=== PATIENT | female | born 1980 | race Caucasian/White ===

== ENCOUNTER 2017-02-01 10:15 | Observation (INO) | payer OTHER ==
[2017-02-01] MEDS ORDERED: PENICILLIN G BENZATHINE LA 2,400,000 UNIT/4 ML DISP.SYRIN. IM ONE (11:30)
[2017-02-01] MEDS ORDERED: AZITHROMYCIN 250 MG TABLET. PO ONE (11:30)
[2017-02-01 11:36] LABS: BASO % 1 % (0-3); EOS % 2 % (0-3); HEMATOCRIT 32.1 % (36.0-47.0); HEMOGLOBIN 10.9 g/dL (12.0-15.5); LYMPH # 1.4 x10^3/uL (1.0-4.8); LYMPH % 21 % (24-48); MEAN CORPUSCULAR HEMOGLOBIN 30 pg (25-35); MEAN CORPUSCULAR HGB CONC 34 g/dL (31-37); MEAN CORPUSCULAR VOLUME 89 fL (79-100); MONO % 7 % (0-9); NEUT % 71 % (31-73); PLATELET COUNT 224 x10^3/uL (140-400); RED CELL DISTRIBUTION WIDTH 14.7 % (11.5-14.5); WHITE BLOOD COUNT 6.8 x10^3/uL (4.0-11.0)
[2017-02-01] MEDS ORDERED: IV RINGERS,LACTATED 500ML 500 ML IV ONE (12:45)
--- NOTE | 2017-02-01 15:58 | PDOC1 ---
OB - History Hx of Present Care: Limited Care Ultrasounds: Normal mid trimester US Obstetrical Complications: None Medical Complications: Other (syphilis and chlamydia) Past Family/Social History * Past Medical, Surgical, Family and Obstetric Histories reviewed from chart. Rubella: Immune RPR/VDRL: Negative GBS Status: Unknown HBsAG: Negative OB - Chief Complaint & HPI Date of Admission: Date of Admission: Feb 01, 2017 at 10:15 Chief Complaint/History : 6 Para: 5 EGA: 25 Reason for admission: other (treatment syphilis and chlamydia) Admission Nurse Assessment Rev: Yes Problems: OB - Admission Exam Physical Exam HEENT: Normal Heart: Regular Rate Lungs: Clear Abdomen: Gravid, Non tender, Soft Extremities: Edema Reflexes: Normal Cervical Dilatation: None Effacement: 0% Station: Ballotable Membranes: Intact Heart Rate: Normal Accelerations: Accelerations Present Decelerations: No decelerations Contractions on Admission: None Text A: 1. 25 wks IUP 2. Previous c/s 3. Syphilis: unknown stage 4. Chlamydia P: Benzathine Pen G 2.4 Million Units IM weekly x 3 wks. Rx Zithromycin 1000 mg single dose. Rx written for significant other to be treated as well. Monitor NST up to 4 hours after each injection. DAXA VELEZ Jr, MD Feb 01, 2017 15:58
[2017-02-02 06:19] LABS: RPR REFLEX Non Reactive (Non Reactive)
== END 2017-02-01 19:50 | disposition home or self-care (01) ==
LOC: 3 SO LND 10:15
PROVIDERS: ADMIT Obstetrics & Gynecology; ATTEND Obstetrics & Gynecology
DX: O98.112 Syphilis complicating pregnancy, second trimester (principal); O98.312 Other infections with a predominantly sexual mode of transmission complicating pregnancy, second trimester; A56.8 Sexually transmitted chlamydial infection of other sites; Z3A.26 26 weeks gestation of pregnancy
CPT/HCPCS: 36415; 85027; 86593; 86850; 86900; 86901; 96360; G0378; G0379; J7120; Q0144

== ENCOUNTER 2017-02-08 08:36 | Observation (INO) | payer OTHER ==
[~2017-02-08] VITALS: Ht 160 cm; Wt 106.1 kg
[2017-02-08] MEDS ORDERED: IV RINGERS,LACTATED 1000ML 1,000 ML IV PRN (09:00)
[2017-02-08 09:30] LABS: NEG OBC AMNIO NEG; POS OBC AMNIO POS
[2017-02-08 10:41] LABS: BASO % 0 % (0-3); EOS % 2 % (0-3); HEMATOCRIT 33.7 % (36.0-47.0); HEMOGLOBIN 11.5 g/dL (12.0-15.5); LYMPH # 1.6 x10^3/uL (1.0-4.8); LYMPH % 16 % (24-48); MEAN CORPUSCULAR HEMOGLOBIN 31 pg (25-35); MEAN CORPUSCULAR HGB CONC 34 g/dL (31-37); MEAN CORPUSCULAR VOLUME 90 fL (79-100); MONO % 7 % (0-9); NEUT % 75 % (31-73); PLATELET COUNT 217 x10^3/uL (140-400); RED BLOOD COUNT 3.76 x10^6/uL (3.50-5.40); RED CELL DISTRIBUTION WIDTH 14.7 % (11.5-14.5); WHITE BLOOD COUNT 9.7 x10^3/uL (4.0-11.0)
[2017-02-08 10:42] LABS: CALCIUM 8.1 mg/dL (8.5-10.1); CREATININE 0.6 mg/dL (0.6-1.0); GFR 113.8; POTASSIUM 3.9 mmol/L (3.5-5.1)
[2017-02-08 10:48] LABS: ALBUMIN 2.1 g/dL (3.4-5.0); ALBUMIN/GLOBULIN RATIO 0.5 (1.0-1.7); TOTAL BILIRUBIN 0.1 mg/dL (0.2-1.0); TOTAL PROTEIN 6.1 g/dL (6.4-8.2)
[2017-02-08 12:49] VITALS: BP 120/73
== END 2017-02-08 11:33 | disposition home or self-care (01) ==
LOC: 3 SO LND 08:36
PROVIDERS: ADMIT Specialist; ATTEND Specialist
DX: O42.912 Preterm premature rupture of membranes, unspecified as to length of time between rupture and onset of labor, second trimester (principal); O26.892 Other specified pregnancy related conditions, second trimester; R10.10 Upper abdominal pain, unspecified; Z3A.27 27 weeks gestation of pregnancy
CPT/HCPCS: 36415; 80053; 82150; 83690; 84112; 85025; G0378; G0379

== ENCOUNTER 2017-04-01 20:38 | Observation (INO) | payer OTHER ==
[2017-04-01] MEDS ORDERED: IV RINGERS,LACTATED 1000ML 1,000 ML IV SCH (20:44)
[2017-04-01 20:54] LABS: BILIRUBIN,URINE NEGATIVE (NEG); GLUCOSE,URINE NEGATIVE (NEG); NITRITE,URINE NEGATIVE (NEG); PH,URINE 6.5; PROTEIN,URINE NEGATIVE (NEG-TRACE); UROBILINOGEN,URINE 0.2 mg/dL (0.2 mg/dL)
[2017-04-01 21:01] LABS: BARBITURATES NEG (NEG); BENZODIAZEPINES NEG (NEG); CANNABINOIDS NEG (NEG); COCAINE NEG (NEG); METHADONE NEG (NEG); OPIATES NEG (NEG); PHENCYCLIDINE NEG (NEG)
[2017-04-01 21:06] LABS: BACTERIA,URINE MODERATE /HPF (0-FEW); RBC,URINE 0 /HPF (0-2); SQUAMOUS EPITHELIAL CELL,UR MOD /LPF
== END 2017-04-01 22:00 | disposition home or self-care (01) ==
LOC: 3 SO LND 20:38
PROVIDERS: ADMIT Specialist; ATTEND Specialist
DX: O36.8130 Decreased fetal movements, third trimester, not applicable or unspecified (principal); Z3A.34 34 weeks gestation of pregnancy
CPT/HCPCS: 80307; 81001; 87086; G0379; G0479

== ENCOUNTER 2017-04-18 20:40 | Observation (INO) | payer OTHER | END 2017-04-18 22:38 | disposition home or self-care (01) | LOC: 3 SO LND 20:40 | PROVIDERS: ADMIT Specialist; ATTEND Specialist | DX: Z34.93 Encounter for supervision of normal pregnancy, unspecified, third trimester (principal); Z3A.37 37 weeks gestation of pregnancy | CPT/HCPCS: G0378; G0379; 59025 ==

== ENCOUNTER 2018-10-08 05:17 | Inpatient (IN) | payer OTHER ==
[2018-10-08] VITALS (7 sets, daily range): BP systolic 112–133; BP diastolic 61–75
[~2018-10-08] VITALS: Ht 167.6 cm; Wt 140.6 kg
[~2018-10-08 05:17] MED LIST: DOCU-109 PO; NAPR-514 PO; OXYC1TAB15 PO
[2018-10-08] MEDS ORDERED: CITRIC ACID/SODIUM CITRATE 30 ML SOLUTION. PO ONE (06:00)
[2018-10-08] MEDS ORDERED: IV RINGERS,LACTATED 1000ML 1,000 ML IV SCH (06:00)
[2018-10-08 06:28] LABS: HEMATOCRIT 28.4 % (36.0-47.0); HEMOGLOBIN 9.3 g/dL (12.0-15.5); RED BLOOD COUNT 3.34 x10^6/uL (3.50-5.40); RED CELL DISTRIBUTION WIDTH 17.5 % (11.5-14.5); WHITE BLOOD COUNT 6.6 x10^3/uL (4.0-11.0)
[2018-10-08 06:35] LABS: BILIRUBIN,URINE NEGATIVE (NEG); CLARITY,URINE CLEAR; COLOR,URINE YELLOW; NITRITE,URINE NEGATIVE (NEG); PH,URINE 6.5; PROTEIN,URINE NEGATIVE (NEG-TRACE)
[2018-10-08 06:40] LABS: BACTERIA,URINE FEW /HPF (0-FEW); SQUAMOUS EPITHELIAL CELL,UR OCC /LPF; WBC,URINE OCC /HPF (0-4)
[2018-10-08 06:41] LABS: RBC,URINE 0 /HPF (0-2)
[2018-10-08 06:47] LABS: BARBITURATES NEG (NEG); BENZODIAZEPINES NEG (NEG); CANNABINOIDS NEG (NEG); COCAINE NEG (NEG); METHADONE NEG (NEG); OPIATES NEG (NEG); PHENCYCLIDINE NEG (NEG)
[2018-10-08 06:51] LABS: AMPHETAMINE/METHAMPHETAMINE NEG (NEG)
[2018-10-08] MEDS ORDERED: fentaNYL PF VIAL 100 MCG/2 ML VIAL ONE (07:15)
[2018-10-08] MEDS ORDERED: MORPHINE PF 5 MG/10 ML VIAL. ONE (07:15)
[2018-10-08] MEDS ORDERED: ePHEDrine PF IN SALINE 50 MG/10 ML SYRINGE. IV ONE (07:16)
[2018-10-08] MEDS ORDERED: FAMOTIDINE 20 MG/2 ML VIAL ONE (08:29)
[2018-10-08] MEDS ORDERED: ONDANSETRON PF 4 MG/2 ML VIAL. ONE (08:29)
[2018-10-08] MEDS ORDERED: OXYTOCIN 10 UNIT/ML VIAL. ONE (09:02)
[2018-10-08] MEDS ORDERED: PHENYLEPHRINE in 0.9% NACL PF 1 MG/10 ML SYRINGE. IV ONE (09:02)
[2018-10-08] MEDS ORDERED: MAGNESIUM HYDROXIDE 2,400 MG/30 ML ORAL.SUSP. PO PRN (09:15)
[2018-10-08] MEDS ORDERED: MAG HYDROX/ALUMINUM HYD/SIMETH 30 ML ORAL.SUSP PO PRN (09:15)
[2018-10-08] MEDS ORDERED: OXYTOCIN 30 UNIT/500 ML PREMIX 500 ML IV PRN (09:15)
[2018-10-08] MEDS ORDERED: ONDANSETRON PF 4 MG/2 ML VIAL. IV PRN (09:15)
[2018-10-08] MEDS ORDERED: MMR per PROTOCOL. MC PRN (09:15)
[2018-10-08] MEDS ORDERED: ZOLPIDEM 5 MG TABLET. PO PRN (09:15)
[2018-10-08] MEDS ORDERED: diphenhydrAMINE ORAL ELIXIR 12.5 MG/5 ML ML PO PRN (09:15)
[2018-10-08] MEDS ORDERED: 0.9 % SODIUM CHLORIDE 10 ML DISP.SYRIN. IV PRN (09:15)
--- NOTE | 2018-10-08 09:18 | PDOC ---
BRIEF OPERATIVE NOTE Pre-Op Diagnosis TIUP Previous term IUFD RLTC/S Post-Op Diagnosis same Procedure Performed section repeat Surgeon Nandini Blood Loss 500cc Findings male 12/31 Complications None CASIMIRO MOSS MD Oct 08, 2018 09:18
[2018-10-08] MEDS: KETOROLAC 30 MG/ML VIAL. IV PRN ×2 (11:16→18:50)
--- NOTE | 2018-10-08 13:00 | NUR ---
Pt. to room 339 via w/c from special care nursery. Pt. transferred well from chair to bed, but pt. is vomiting/retching frequently. Instructed to splint incision with pillow to help decrease pain. Oriented to room and POC, FOB and other children at bedside.
[2018-10-08] MEDS: IBUPROFEN 400 MG TABLET. PO SCH ×2 (14:00→22:00)
[2018-10-08] MEDS ORDERED: PROMETHAZINE 12.5 MG TABLET. PO PRN (14:15)
[2018-10-08] MEDS ORDERED: EPHE1TAB PO (14:16)
[2018-10-08] MEDS ORDERED: PREN1TAB9 PO (14:16)
[2018-10-08] MEDS: ceFAZolin SODIUM 1 GM in IV DEXTROSE 5% 50 ML IV SCH ×2 (14:50→22:35)
--- NOTE | 2018-10-08 14:50 | NUR ---
Pt. continues to vomit and retch frequently especially with movement.. notified and additional orders for antiemetic given. Pt. requesting to go back down to nursery, but RN explained was not best for her while still having frequent vomiting. Reinforced need to try and rest after major surgery.
[2018-10-08] MEDS: IV RINGERS,LACTATED 1000ML 1,000 ML IV SCH ×2 (15:00→16:38)
--- NOTE | 2018-10-08 16:45 | NUR ---
Pt. requesting again to go down to nursery to visit baby. RN reinforced again that was not a good idea while continuing to vomit and retch. RN informed of risk for dehiscence with overexertion and that increased movement was increasing her n/v. Pt. stating RN is keeping her from her baby and regardless of risks would like to go visit her baby. Pt. to nursery via w/c accompanied by RN. Pt. transferred well.
[2018-10-08] MEDS: FERROUS SULFATE 325 MG TABLET. PO SCH (17:00)
--- NOTE | 2018-10-08 17:45 | NUR ---
Pt. returned to room and transferred back to bed per self, tolerated well. Pt. tolerated visit to nursery without n/v. Pt. with increased bleeding (moderate rubra with small clots) when placed back in bed; fundus firm, but deviated to right slightly. Barnes catheter draining well. Will continue to monitor closely.
[2018-10-09] MEDS: IV RINGERS,LACTATED 1000ML 1,000 ML IV SCH ×3 (01:35→15:00)
[2018-10-09 04:30] VITALS: BP 110/68
[2018-10-09 04:45] LABS: BASO # 0.1 x10^3/uL (0.0-0.2); BASO % 1 % (0-3); EOS # 0.1 x10^3/uL (0.0-0.7); EOS % 2 % (0-3); HEMOGLOBIN 8.9 g/dL (12.0-15.5); LYMPH # 1.2 x10^3/uL (1.0-4.8); LYMPH % 18 % (24-48); MEAN CORPUSCULAR HEMOGLOBIN 28 pg (25-35); MEAN CORPUSCULAR HGB CONC 33 g/dL (31-37); MEAN CORPUSCULAR VOLUME 85 fL (79-100); MONO # 0.5 x10^3/uL (0.0-1.1); MONO % 8 % (0-9); NEUT # 4.6 x10^3uL (1.8-7.7); NEUT % 71 % (31-73); PLATELET COUNT 260 x10^3/uL (140-400); RED BLOOD COUNT 3.17 x10^6/uL (3.50-5.40); RED CELL DISTRIBUTION WIDTH 17.3 % (11.5-14.5); WHITE BLOOD COUNT 6.5 x10^3/uL (4.0-11.0)
[2018-10-09] MEDS: IBUPROFEN 400 MG TABLET. PO SCH ×3 (04:53→19:11)
[2018-10-09] MEDS: ceFAZolin SODIUM 1 GM in IV DEXTROSE 5% 50 ML IV SCH (06:00)
--- NOTE | 2018-10-09 07:25 | NUR ---
Pt. fundus firm, scant amount of rubra vaginal flow, up to BR, perineal care given. Verbalized understanding of self care. Pt. ambulates to special care nursery to visit NB.
[2018-10-09] MEDS: oxyCODONE/APAP 5/325 1 TAB TABLET PO PRN ×5 (08:19→21:33)
[2018-10-09] MEDS: FERROUS SULFATE 325 MG TABLET. PO SCH ×2 (08:57→17:21)
[2018-10-09 08:58] VITALS: BP 113/58
--- NOTE | 2018-10-09 13:54 | PDOC ---
OB Progress Note Date of Service 10/09/18 Time of Evaluation 1350 Notes Pt. feeling well. No complaints. Lab Laboratory Tests Test 10/08/18 05:27 10/08/18 05:50 10/08/18 06:15 10/09/18 04:35 Treponema pallidum Antibody Reactive (Nonreactive) White Blood Count 6.6 x10^3/uL (4.0-11.0) 6.5 x10^3/uL (4.0-11.0) Red Blood Count 3.34 x10^6/uL (3.50-5.40) 3.17 x10^6/uL (3.50-5.40) Hemoglobin 9.3 g/dL (12.0-15.5) 8.9 g/dL (12.0-15.5) Hematocrit 28.4 % (36.0-47.0) 27.0 % (36.0-47.0) Mean Corpuscular Volume 85 fL (79-100) 85 fL (79-100) Mean Corpuscular Hemoglobin 28 pg (25-35) 28 pg (25-35) Mean Corpuscular Hemoglobin Concent 33 g/dL (31-37) 33 g/dL (31-37) Red Cell Distribution Width 17.5 % (11.5-14.5) 17.3 % (11.5-14.5) Platelet Count 317 x10^3/uL (140-400) 260 x10^3/uL (140-400) Urine Collection Type Void Urine Color Yellow Urine Clarity Clear Urine pH 6.5 Urine Specific [place] >=1.030 Urine Protein Negative mg/dL (NEG-TRACE) Urine Glucose (UA) Negative mg/dL (NEG) Urine Ketones (Stick) Trace mg/dL (NEG) Urine Blood Negative (NEG) Urine Nitrite Negative (NEG) Urine Bilirubin Negative (NEG) Urine Urobilinogen Dipstick 1.0 mg/dL (0.2 mg/dL) Urine Leukocyte Esterase Negative (NEG) Urine RBC 0 /HPF (0-2) Urine WBC Occ /HPF (0-4) Urine Squamous Epithelial Cells Occ /LPF Urine Bacteria Few /HPF (0-FEW) Urine Mucus Marked /LPF Urine Opiates Screen Neg (NEG) Urine Methadone Screen Neg (NEG) Urine Barbiturates Neg (NEG) Urine Phencyclidine Screen Neg (NEG) Urine Amphetamine/Methamphetamine Neg (NEG) Urine Benzodiazepines Screen Neg (NEG) Urine Cocaine Screen Neg (NEG) Urine Cannabinoids Screen Neg (NEG) Urine Ethyl Alcohol Neg (NEG) Neutrophils (%) (Auto) 71 % (31-73) Lymphocytes (%) (Auto) 18 % (24-48) Monocytes (%) (Auto) 8 % (0-9) Eosinophils (%) (Auto) 2 % (0-3) Basophils (%) (Auto) 1 % (0-3) Neutrophils # (Auto) 4.6 x10^3uL (1.8-7.7) Lymphocytes # (Auto) 1.2 x10^3/uL (1.0-4.8) Monocytes # (Auto) 0.5 x10^3/uL (0.0-1.1) Eosinophils # (Auto) 0.1 x10^3/uL (0.0-0.7) Basophils # (Auto) 0.1 x10^3/uL (0.0-0.2) Laboratory Tests Test 10/09/18 04:35 White Blood Count 6.5 x10^3/uL (4.0-11.0) Red Blood Count 3.17 x10^6/uL (3.50-5.40) Hemoglobin 8.9 g/dL (12.0-15.5) Hematocrit 27.0 % (36.0-47.0) Mean Corpuscular Volume 85 fL (79-100) Mean Corpuscular Hemoglobin 28 pg (25-35) Mean Corpuscular Hemoglobin Concent 33 g/dL (31-37) Red Cell Distribution Width 17.3 % (11.5-14.5) Platelet Count 260 x10^3/uL (140-400) Neutrophils (%) (Auto) 71 % (31-73) Lymphocytes (%) (Auto) 18 % (24-48) Monocytes (%) (Auto) 8 % (0-9) Eosinophils (%) (Auto) 2 % (0-3) Basophils (%) (Auto) 1 % (0-3) Neutrophils # (Auto) 4.6 x10^3uL (1.8-7.7) Lymphocytes # (Auto) 1.2 x10^3/uL (1.0-4.8) Monocytes # (Auto) 0.5 x10^3/uL (0.0-1.1) Eosinophils # (Auto) 0.1 x10^3/uL (0.0-0.7) Basophils # (Auto) 0.1 x10^3/uL (0.0-0.2) Medications Current Medications Ringer's Solution 1,000 ml @ 1,000 mls/hr Q1H IV Last administered on at 07:28; Start 10/08/18 at 06:00; Stop 10/08/18 at 06:59; Status DC Ringer's Solution 1,000 ml @ 125 mls/hr Q8H IV Last administered on 10/09/18at 01:35; Start 10/08/18 at 07:00 Cefazolin Sodium/ Dextrose 50 ml @ 100 mls/hr 1X ONCE IV Last administered on 10/08/18at 07:28; Start 10/08/18 at 06:00; Stop 10/08/18 at 06:29; Status DC Citric Acid/ Sodium Citrate (Bicitra) 30 ml 1X ONCE PO Last administered on at 07:28; Start 10/08/18 at 06:00; Stop 10/08/18 at 06:01; Status DC Fentanyl Citrate (Fentanyl 2ml Vial) 100 mcg STK-MED ONCE .ROUTE ; Start at 07:15; Stop 10/08/18 at 07:16; Status DC Morphine Sulfate (Morphine Preservative Free) 5 mg STK-MED ONCE .ROUTE ; Start 10/08/18 at 07:15; Stop 10/08/18 at 07:16; Status DC Ephedrine Sulfate (ePHEDrine PF IN SALINE SYRINGE) 50 mg STK-MED ONCE IV ; Start 10/08/18 at 07:16; Stop 10/08/18 at 07:17; Status DC Ondansetron HCl (Zofran) 4 mg STK-MED ONCE .ROUTE ; Start 10/08/18 at 08:29; Stop 10/08/18 at 08:30; Status DC Famotidine (Pepcid Vial) 20 mg STK-MED ONCE .ROUTE ; Start 10/08/18 at 08:29; Stop 10/08/18 at 08:30; Status DC Oxytocin (Pitocin) 10 unit STK-MED ONCE .ROUTE ; Start 10/08/18 at 09:02; Stop 10/08/18 at 09:03; Status DC Phenylephrine HCl (PHENYLEPHRINE in 0.9% NACL PF) 1 mg STK-MED ONCE IV ; Start 10/08/18 at 09:02; Stop 10/08/18 at 09:03; Status DC Sodium Chloride (Normal Saline Flush) 3 ml QSHIFT PRN IV AFTER MEDS AND BLOOD DRAWS; Start 10/08/18 at 09:15 Oxytocin/Sodium Chloride 500 ml @ 125 mls/hr CONT PRN IV EXCESSIVE POST- BLEEDING; Start 10/08/18 at 09:15; Stop 10/08/18 at 17:14; Status DC Ibuprofen (Motrin) 800 mg Q8HRS PO Last administered on 10/09/18at 04:53; Start 10/08/18 at 14:00 Ondansetron HCl (Zofran) 4 mg PRN Q6HRS PRN IV NAUSEA/VOMITING Last administered on 10/08/18at 10:04; Start 10/08/18 at 09:15 Docusate Sodium (Colace) 100 mg PRN BID PRN PO HARD STOOLS; Start 10/08/18 at 09:15 Magnesium Hydroxide (Milk Of Magnesia) 2,400 mg PRN DAILY PRN PO CONSTIPATION; Start 10/08/18 at 09:15 Al Hydroxide/Mg Hydroxide (Mylanta Plus Xs) 30 ml PRN Q4HRS PRN PO HEARTBURN / GAS; Start 10/08/18 at 09:15 Simethicone (Gas-X) 80 mg PRN AFTMEALHC PRN PO GAS / BLOATING; Start 10/08/18 at 09:15 Diphenhydramine HCl (Benadryl Oral Elixir) 12.5 mg PRN Q6HRS PRN PO ITCHING; Start 10/08/18 at 09:15 Ferrous Sulfate (Feosol) 325 mg BIDWMEALS PO Last administered on 10/09/18at 08: 57; Start 10/08/18 at 17:00 Zolpidem Tartrate (Ambien) 5 mg PRN QHS PRN PO INSOMNIA, MAY REPEAT X1; Start 10/08/18 at 09:15 Info (Do NOT chart on this placeholder) 1 ea PRN 1X PRN MC SEE COMMENTS; Start 10/08/18 at 09:15 Info (Do NOT chart on this placeholder) 1 ea PRN 1X PRN MC SEE COMMENTS; Start 10/08/18 at 09:15 Oxycodone/ Acetaminophen (Percocet 5/325) 1 tab PRN Q4HRS PRN PO MILD PAIN Last administered on 10/09/18at 08:19; Start 10/08/18 at 09:15 Oxycodone/ Acetaminophen (Percocet 5/325) 2 tab PRN Q4HRS PRN PO MODERATE PAIN , SEVERE PAIN Last administered on 10/09/18at 13:06; Start 10/08/18 at 09:15 Cefazolin Sodium 1 gm/Dextrose 50 ml @ 100 mls/hr Q8H IV Last administered on 10/09/18at 06:00; Start 10/08/18 at 14:00; Stop 10/09/18 at 06:29; Status DC Ketorolac Tromethamine (Toradol 30mg Vial) 30 mg PRN Q6HRS PRN IV PAIN Last administered on 10/08/18at 18:50; Start 10/08/18 at 11:15; Stop 10/13/18 at 11:14 Promethazine HCl (Phenergan) 25 mg PRN Q6HRS PRN PO NAUSEA/VOMITING Last administered on 10/08/18at 14:50; Start 10/08/18 at 14:15 Active Scripts Active Percocet 5-325 Mg Tablet (Oxycodone/Acetaminophen) 1 Each Tablet 1 Tab PO PRN Q6HRS PRN Naproxen 500 Mg Tablet 1 Tab PO BID Colace (Docusate Sodium) 100 Mg Capsule 100 Mg PO BID Reported Vitamins Tablet ( Vit/Iron Fumarate/Fa) 1 Each Tablet 1 Each PO DAILY Bronkaid Dual Action Caplet (Ephedrine Sulfate/Guaifenesin) 1 Each Tablet 1 Each PO PRN PRN Exam Abd: soft, non tender, fundus firm Prevena in place Assessment POD#1 s/p c/s Plan of Care: Continue current Tx, Mgmt DAXA VELEZ Jr, MD Oct 09, 2018 13:54
--- NOTE | 2018-10-09 16:06 | NUR ---
SS following up with referral regarding "Mother's UDS negative this visit. Mother non-compliant and insistent on stimulating despite RN instruction on 10/08/2018. When asked by labor RN Vladislav Santos, mother states that she does not take her other children to the doctor, "because they don't get sick." Per our records, mother delivered at [place] via C/S on 04/24/2017, was positive for amphetamines and methamphetamines and child was released to state custody/[facility] on 04/28/2017." SS reviewed pt chart. Per record mother has had seven other children and has had one stillborn child. Mothers child born on 04/24/2017 was taking into state custody on 04/28/2017. SS met with mother to assess circumstances surrounding the referral. Infants mother reported that she did not want to speak with SS. She reported that "social workers are like dogs looking for a reason to take her children." Infants mother reported that she has custody of all of her children and that her case in 2017 was dismissed by the courts. Infants mother denied substance use and reported that her positive drug screens in 2017 were due to bronchitis medications that the doctor had prescribed her. Infants mother denied behavioral health history. As observed, infants mother was agitated and reported that she would not speak with SS anymore and if I had any further questions I could speak with her gasoline engine inspector. PAT team consulted for evaluation. Manjeet met with pt. SS completed DCF hotline report by phone due to concern with past reports and mothers behaviors and previous loss of custody of other children. DCF reported that due to systems being down they could not provide an intake number at the time and reported that they would e-mail SS with the intake number. Infant RN notified.
[2018-10-09 16:35] VITALS: BP 140/73
[2018-10-09 21:27] VITALS: BP 134/71
[2018-10-09] MEDS: DOCUSATE SODIUM 100 MG CAPSULE. PO PRN (21:32)
[2018-10-10] MEDS: SIMETHICONE 80 MG TAB.CHEW PO PRN ×2 (00:53→16:24)
[2018-10-10] MEDS: IBUPROFEN 400 MG TABLET. PO SCH ×2 (02:52→17:31)
[2018-10-10 05:45] VITALS: BP 140/86
[2018-10-10] MEDS: oxyCODONE/APAP 5/325 1 TAB TABLET PO PRN ×4 (09:10→23:46)
[2018-10-10] MEDS: FERROUS SULFATE 325 MG TABLET. PO SCH ×2 (09:10→16:24)
[2018-10-10] MEDS: DOCUSATE SODIUM 100 MG CAPSULE. PO PRN (09:11)
--- NOTE | 2018-10-10 09:44 | PDOC ---
OB Progress Note Date of Service 10/10/18 Time of Evaluation 0945 Notes Pt. feeling well. No complaints. Lab Laboratory Tests Test 10/09/18 04:35 White Blood Count 6.5 x10^3/uL (4.0-11.0) Red Blood Count 3.17 x10^6/uL (3.50-5.40) Hemoglobin 8.9 g/dL (12.0-15.5) Hematocrit 27.0 % (36.0-47.0) Mean Corpuscular Volume 85 fL (79-100) Mean Corpuscular Hemoglobin 28 pg (25-35) Mean Corpuscular Hemoglobin Concent 33 g/dL (31-37) Red Cell Distribution Width 17.3 % (11.5-14.5) Platelet Count 260 x10^3/uL (140-400) Neutrophils (%) (Auto) 71 % (31-73) Lymphocytes (%) (Auto) 18 % (24-48) Monocytes (%) (Auto) 8 % (0-9) Eosinophils (%) (Auto) 2 % (0-3) Basophils (%) (Auto) 1 % (0-3) Neutrophils # (Auto) 4.6 x10^3uL (1.8-7.7) Lymphocytes # (Auto) 1.2 x10^3/uL (1.0-4.8) Monocytes # (Auto) 0.5 x10^3/uL (0.0-1.1) Eosinophils # (Auto) 0.1 x10^3/uL (0.0-0.7) Basophils # (Auto) 0.1 x10^3/uL (0.0-0.2) Medications Current Medications Ringer's Solution 1,000 ml @ 1,000 mls/hr Q1H IV Last administered on at 07:28; Start 10/08/18 at 06:00; Stop 10/08/18 at 06:59; Status DC Ringer's Solution 1,000 ml @ 125 mls/hr Q8H IV Last administered on 10/09/18at 01:35; Start 10/08/18 at 07:00; Stop 10/09/18 at 19:10; Status DC Cefazolin Sodium/ Dextrose 50 ml @ 100 mls/hr 1X ONCE IV Last administered on 10/08/18at 07:28; Start 10/08/18 at 06:00; Stop 10/08/18 at 06:29; Status DC Citric Acid/ Sodium Citrate (Bicitra) 30 ml 1X ONCE PO Last administered on at 07:28; Start 10/08/18 at 06:00; Stop 10/08/18 at 06:01; Status DC Fentanyl Citrate (Fentanyl 2ml Vial) 100 mcg STK-MED ONCE .ROUTE ; Start at 07:15; Stop 10/08/18 at 07:16; Status DC Morphine Sulfate (Morphine Preservative Free) 5 mg STK-MED ONCE .ROUTE ; Start 10/08/18 at 07:15; Stop 10/08/18 at 07:16; Status DC Ephedrine Sulfate (ePHEDrine PF IN SALINE SYRINGE) 50 mg STK-MED ONCE IV ; Start 10/08/18 at 07:16; Stop 10/08/18 at 07:17; Status DC Ondansetron HCl (Zofran) 4 mg STK-MED ONCE .ROUTE ; Start 10/08/18 at 08:29; Stop 10/08/18 at 08:30; Status DC Famotidine (Pepcid Vial) 20 mg STK-MED ONCE .ROUTE ; Start 10/08/18 at 08:29; Stop 10/08/18 at 08:30; Status DC Oxytocin (Pitocin) 10 unit STK-MED ONCE .ROUTE ; Start 10/08/18 at 09:02; Stop 10/08/18 at 09:03; Status DC Phenylephrine HCl (PHENYLEPHRINE in 0.9% NACL PF) 1 mg STK-MED ONCE IV ; Start 10/08/18 at 09:02; Stop 10/08/18 at 09:03; Status DC Sodium Chloride (Normal Saline Flush) 3 ml QSHIFT PRN IV AFTER MEDS AND BLOOD DRAWS; Start 10/08/18 at 09:15 Oxytocin/Sodium Chloride 500 ml @ 125 mls/hr CONT PRN IV EXCESSIVE POST- BLEEDING; Start 10/08/18 at 09:15; Stop 10/08/18 at 17:14; Status DC Ibuprofen (Motrin) 800 mg Q8HRS PO Last administered on 10/10/18at 02:52; Start 10/08/18 at 14:00 Ondansetron HCl (Zofran) 4 mg PRN Q6HRS PRN IV NAUSEA/VOMITING Last administered on 10/08/18at 10:04; Start 10/08/18 at 09:15 Docusate Sodium (Colace) 100 mg PRN BID PRN PO HARD STOOLS Last administered on 10/10/18at 09:11; Start 10/08/18 at 09:15 Magnesium Hydroxide (Milk Of Magnesia) 2,400 mg PRN DAILY PRN PO CONSTIPATION Last administered on 10/10/18at 09:12; Start 10/08/18 at 09:15 Al Hydroxide/Mg Hydroxide (Mylanta Plus Xs) 30 ml PRN Q4HRS PRN PO HEARTBURN / GAS; Start 10/08/18 at 09:15 Simethicone (Gas-X) 80 mg PRN AFTMEALHC PRN PO GAS / BLOATING Last administered on 10/10/18at 00:53; Start 10/08/18 at 09:15 Diphenhydramine HCl (Benadryl Oral Elixir) 12.5 mg PRN Q6HRS PRN PO ITCHING; Start 10/08/18 at 09:15 Ferrous Sulfate (Feosol) 325 mg BIDWMEALS PO Last administered on 10/10/18at 09: 10; Start 10/08/18 at 17:00 Zolpidem Tartrate (Ambien) 5 mg PRN QHS PRN PO INSOMNIA, MAY REPEAT X1; Start 10/08/18 at 09:15 Info (Do NOT chart on this placeholder) 1 ea PRN 1X PRN MC SEE COMMENTS; Start 10/08/18 at 09:15 Info (Do NOT chart on this placeholder) 1 ea PRN 1X PRN MC SEE COMMENTS; Start 10/08/18 at 09:15 Oxycodone/ Acetaminophen (Percocet 5/325) 1 tab PRN Q4HRS PRN PO MILD PAIN Last administered on 10/09/18at 08:19; Start 10/08/18 at 09:15 Oxycodone/ Acetaminophen (Percocet 5/325) 2 tab PRN Q4HRS PRN PO MODERATE PAIN , SEVERE PAIN Last administered on 10/10/18at 09:10; Start 10/08/18 at 09:15 Cefazolin Sodium 1 gm/Dextrose 50 ml @ 100 mls/hr Q8H IV Last administered on 10/09/18at 06:00; Start 10/08/18 at 14:00; Stop 10/09/18 at 06:29; Status DC Ketorolac Tromethamine (Toradol 30mg Vial) 30 mg PRN Q6HRS PRN IV PAIN Last administered on 10/08/18at 18:50; Start 10/08/18 at 11:15; Stop 10/13/18 at 11:14 Promethazine HCl (Phenergan) 25 mg PRN Q6HRS PRN PO NAUSEA/VOMITING Last administered on 10/08/18at 14:50; Start 10/08/18 at 14:15 Active Scripts Active Percocet 5-325 Mg Tablet (Oxycodone/Acetaminophen) 1 Each Tablet 1 Tab PO PRN Q6HRS PRN Naproxen 500 Mg Tablet 1 Tab PO BID Colace (Docusate Sodium) 100 Mg Capsule 100 Mg PO BID Reported Vitamins Tablet ( Vit/Iron Fumarate/Fa) 1 Each Tablet 1 Each PO DAILY Bronkaid Dual Action Caplet (Ephedrine Sulfate/Guaifenesin) 1 Each Tablet 1 Each PO PRN PRN Exam Abd: soft, non tender, fundus firm Prevena in place Assessment POD#2 s/p c/s Plan of Care: Continue current Tx, Mgmt (Encouraged patient to remain on post floor and avoid smoking outside.) DAXA VELEZ Jr, MD Oct 10, 2018 09:44
[2018-10-10 10:54] VITALS: BP 149/88
[2018-10-10 11:33] VITALS: BP 126/79
--- NOTE | 2018-10-10 13:55 | NUR ---
FACULTY CO-SIGN I have reviewed the documentation by geriatric nursing assistant:Karsten Clifford
--- NOTE | 2018-10-10 16:22 | NUR ---
SS following up with DCF hotline report. SS contacted DCF supervisors for intake number and update on hotline report. DCF melter supervisor, January Shaun, , notified SS that infants mother already has an assigned DCF worker, Zoë Ledbetter Zen, . SS attempted to contact Zoë by phone but received a message that Zoë was on vacation until 10/16/2018. SS e-mailed and attempted to call DCF supervisors by phone inquiring as to who is covering Zoë's cases while she is on vacation. SS has received no response at this time. will continue to make efforts to contact DCF to come visit with mother and .
[2018-10-10 17:00] VITALS: BP 124/75
--- NOTE | 2018-10-10 17:07 | PATHOLOGY ---
[facility] Accession Number: [id number] . 01 Material submitted: . placenta - CORD AND PLACENTA . 01 Clinical history: . 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 02 Diagnosis: 690 gram early term placenta of an estimated 38 weeks gestation with attached membranes and umbilical cord: - Few subamniotic pigmented macrophages consistent with meconium staining. - Chorangiosis, focal. (JPM:nu; 10/10/2018) QMS/10/10/2018 . 02 Comment: There is no evidence of an acute chorioamnionitis. There are no infarcts. (JPM:nu; 10/10/2018) . 02 Electronically signed: . Otf Grant MD, Pathologist NPI- [id number] . 01 Gross description: . The specimen is received in formalin, labeled "Enid Weiss, placenta". Received is a [place] placenta with attached membranes and umbilical cord with a trimmed placental weight of 690 g and measuring 17.4 x 16.8 x 3.2 cm in greatest dimensions. The membranes are pale grijalva to grijalva-green and translucent in appearance, and the site of membrane rupture is 1.6 cm from the placental margin. The surface is intact displaying a normal arborizing vasculature pattern, as well as a slight light green staining. The trivascular umbilical cord measures 39.2 cm in length by 2.0 cm in diameter and inserts eccentrically, 3.4 cm from the closest placental margin. The umbilical cord is pale grijalva to dusky white-stephenson in appearance. The maternal surface is intact and complete; a moderate amount of adherent blood coagulum was seen on the surface. Sectioning reveals bright pink to pink-red cut surfaces with no grossly distinct nodules or lesions. The specimen is submitted representatively as follows: . A1 umbilical cord and surface vessels A2 membrane roll and peripheral placental segment A3-A4 full-thickness placental cross-section, divided into and maternal aspects. (CAA; 10/09/2018) QAC/QAC . 02 Pathologist provided ICD-10: O77.0, Z3A.38 . 02 CPT . 135877 Specimen Comment: A courtesy copy of this report has been sent to Specimen Comment: [phone]. Specimen Comment: Report sent to Performed at: 01 [facility] [address], [place] [id number] MD Clif Tolliver MD Phone: [phone] Performed at: 02 [facility] [address] [place], [place] [id number] MD Otf Grant MD Phone: [phone]
[2018-10-10 21:04] VITALS: BP 125/76
[2018-10-11] MEDS: oxyCODONE/APAP 5/325 1 TAB TABLET PO PRN ×3 (05:41→13:51)
[2018-10-11 06:12] VITALS: BP 124/69
[2018-10-11] MEDS: IBUPROFEN 400 MG TABLET. PO SCH ×2 (08:10→16:30)
[2018-10-11] MEDS: DOCUSATE SODIUM 100 MG CAPSULE. PO PRN ×2 (08:11→16:29)
[2018-10-11] MEDS: FERROUS SULFATE 325 MG TABLET. PO SCH ×2 (08:11→16:29)
--- NOTE | 2018-10-11 10:03 | PDOC3 ---
OB DISCHARGE SUMMARY DATE OF ADMISSION: 10/08/18 DATE OF DISCHARGE: 10/11/18 REASON FOR ADMISSION: section INTRAPARTUM PROCEDURES: : Low Cerv Trans DISCHARGE DIAGNOSIS: Term Delivered DISCHARGE INFORMATION: Activity (ad chana), Diet (regular), Instructions (pelvic rest x 6 wks, no driving x 2 weeks, no lifting > 20 lbs. x 4 wks) HOSPITAL COURSE Term gestation delivered via repeat c/s without complications. DAXA VELEZ Jr, MD Oct 11, 2018 10:02
[2018-10-11] MEDS ORDERED: IBUP-1027 PO (10:05)
[2018-10-11] MEDS ORDERED: DOCU-109 PO (10:05)
[2018-10-11] MEDS ORDERED: OXYC1TAB15 PO (10:05)
--- NOTE | 2018-10-11 10:06 | DISCH ---
DISCHARGE INSTRUCTIONS Condition on Discharge Condition on Discharge: Stable Activity After Discharge Activity Instructions for Disc: Activity as tolerated Lifting Instructions after Dis: No heavy lifting Driving Instructions after Dis: No driving for 2 weeks Diet after Discharge Diet after Discharge: Regular Contacting the DRAntonio after DC Call your doctor for: Concerns you may have Follow-Up Follow up with: Dr. Delatorre in 1 week DAXA VELEZ Jr, MD Oct 11, 2018 10:06
[2018-10-11 11:32] VITALS: BP 113/77
--- NOTE | 2018-10-11 15:27 | NUR ---
SS following up. SS has received no contact from [facility] at this time. SS contacted them via phone, Kitty Mccall, , and via email this morning for an update and to notify them of what we are needing assistance with. SS received order for [facility] for long term three times per week for four weeks and visits two times weekly for four weeks. SS phoned and faxed home healthcare order and discharge orders to [facility], ; fax [phone]. RN notified.
--- NOTE | 2018-10-11 15:48 | NUR ---
home instructions gone over with pt and signed states has no questions on home care. was given boarder policy to read and signed as well. states understands boarder rules.
--- NOTE | 2018-10-11 17:15 | NUR ---
prevena pulled loose on pt. removed has a done size area to left side of redness due to skin breakdown. cleaned area. will replace prevena this tramaine
--- NOTE | 2018-11-01 12:16 | PDOC1 ---
OB - History Hx of Present Care: Good Care Ultrasounds: Normal mid trimester US Obstetrical Complications: None Medical Complications: None Past Family/Social History * Past Medical, Surgical, Family and Obstetric Histories reviewed from chart. Blood Type: O+ Rubella: Immune RPR/VDRL: Negative GBS Status: Unknown OB - Chief Complaint & HPI Date of Admission: Date of Admission: Oct 08, 2018 at 05:17 Chief Complaint/History : 9 Para: 6 EDC: Oct 22, 2018 Reason for admission: section Indication for induction: medical complication Admission Nurse Assessment Rev: Yes OB - Admission Exam Physical Exam HEENT: Normal, Nasal Mucosa Normal, Oropharynx Normal, Moist Membranes, Fontanelles Normal Heart: Regular Rate Lungs: Clear Abdomen: Gravid Extremities: Normal Pulses, No tenderness or swelling Reflexes: Normal Effacement: 0% Membranes: Intact Heart Rate: Normal Accelerations: Accelerations Present Decelerations: No decelerations Assessment/Plan Assessment/Plan TIUP Previous term IUFD RLTC/S CASIMIRO MOSS MD November 01, 2018 12:15
--- NOTE | 2018-11-01 12:30 | OP ---
DATE OF SURGERY: 10/08/2018 PREOPERATIVE DIAGNOSES: Term intrauterine , previous term intrauterine , repeat low transverse . POSTOPERATIVE DIAGNOSES: Term intrauterine , previous term intrauterine , repeat low transverse . PROCEDURE: Repeat low transverse . SURGEON: Jaiden Delatorre M.D. OIL PROCESS STILLMAN: None. FINDINGS: Normal male infant, Apgars 8, 9 and 9; weight 7 pounds 8 ounces. Normal uterus, tubes and ovaries. COMPLICATIONS: None. CONDITION: Stable. DESCRIPTION OF PROCEDURE: After risks, benefits, indications, alternatives discussed in detail with the patient. The patient brought to the OR theater, placed in supine position with left lateral uterine displacement. After adequate regional anesthesia, the patient prepped and draped in usual sterile manner. Previous Pfannenstiel incision was taken out in toto with the scalpel, taken down through subcutaneous tissue with the scalpel. Rectus fascia was nicked in the midline with Bovie cautery, extended laterally in each direction with Ortega scissors. Upper edge of rectus fascia was grasped x 2 with Sherie clamps and the underlying rectus muscle both bluntly and sharply with Bovie cautery. The same procedure was carried out on lower edge of the rectus fascia. Rectus muscle split in midline and extended superiorly and inferiorly with Bovie cautery. Parietal peritoneum was entered sharply and extended inferiorly and superiorly with Metzenbaum scissors. Lan retractor was placed within the pelvic cavity. Low transverse hysterotomy incision was made sharply with a scalpel with care not to injure any underlying structures. Membranes ruptured and clear fluid was noted. Gloved hand was placed within the lower uterine segment, used to elevate the head with fundal pressure from the ssn/ssbn assistant navigator; infant was delivered on anterior abdominal wall. Infant cried spontaneously and moved all extremities. Cord blood samples were taken after the cord was doubly clamped and transected and handed to nursing care in attendance. Placenta delivered spontaneously intact, 3-vessel cord. Uterus wiped free of any adherent membranes. The low transverse hysterotomy incision was reapproximated with 0 Monocryl in a running locking manner and imbricated in a horizontal mattress stitch with 0 Monocryl. The bladder flap was reapproximated with 3-0 Vicryl in a running manner. Lan retractor was removed. Gutters were inspected and noted to be free of any debris or blood. Rectus muscles reapproximated with 3-0 Vicryl in a horizontal mattress stitch fashion. Areas of bleed in the rectus muscle were controlled with Bovie cautery. Rectus fascia was reapproximated with 0 PDS x 2 starting from the cornua and meeting in the middle. Subcutaneous tissue was irrigated copiously with warm normal saline. Yuri fascia was reapproximated with 2-0 plain. Skin was reapproximated with Insorb edwin. Sponge, needle, and instrument counts correct x 2 per nursing staff. JAIDEN DELATORRE MD DR: MARCELLA/myriam JOB#: [id number] / [id number]
== END 2018-10-11 19:14 | disposition home or self-care (01) | DRG 788 ==
LOC: 3 SO LND 05:17 → 3 NORTH 13:00
PROVIDERS: ADMIT Specialist; ATTEND Specialist
PROC: 10D00Z1 Extraction of Products of Conception, Low, Open Approach (ICD-10-PCS; principal; 2018-10-08)
DX: O34.219 Maternal care for unspecified type scar from previous cesarean delivery (principal); Z37.0 Single live birth; Z3A.38 38 weeks gestation of pregnancy; Z20.2 Contact with and (suspected) exposure to infections with a predominantly sexual mode of transmission
CPT/HCPCS: 36415; 80307; 81001; 85025; 85027; 86592; 86593; 86850; 86900; 86901; 88307; J0171; J0690; J0696; J1885; J2270; J2370; J2405; J2590; J3010; J3490; J7120; Q0169